=== PATIENT | female | born 1955 | race Asian ===

== ENCOUNTER 2018-10-19 09:38 | Outpatient (CLI) | payer OTHER ==
[~2018-10-19 09:38] MED LIST: CLOP75TA2 PO; INSU100I2 SC; LEVO0.0218 PO; LISI20TA11 PO; NEURONTIN800 MG PO
== END 2018-10-19 22:30 | disposition home or self-care (01) ==
LOC: RAD 09:38
DX: R05 Cough (principal)

== ENCOUNTER 2018-10-28 13:43 | Emergency (ER) | payer OTHER ==
[~2018-10-28] VITALS: Ht 165.1 cm; Wt 99.8 kg
[2018-10-28 14:11] VITALS: BP 164/98; TEMP 98.2
== END 2018-10-28 17:00 | disposition home or self-care (01) ==
LOC: ED 13:43
DX: S16.1XXA Strain of muscle, fascia and tendon at neck level, initial encounter (principal); S20.212A Contusion of left front wall of thorax, initial encounter; S20.211A Contusion of right front wall of thorax, initial encounter; S00.83XA Contusion of other part of head, initial encounter; V89.2XXA Person injured in unspecified motor-vehicle accident, traffic, initial encounter; Y92.89 Other specified places as the place of occurrence of the external cause
CPT/HCPCS: 96372; 99283; J1885

== ENCOUNTER 2018-11-06 15:59 | Emergency (ER) | payer OTHER ==
[~2018-11-06] VITALS: Ht 165.1 cm; Wt 99.8 kg
[2018-11-06 17:05] VITALS: BP 185/92; TEMP 98.5
== END 2018-11-06 17:05 | disposition home or self-care (01) ==
LOC: ED 15:59
DX: J44.1 Chronic obstructive pulmonary disease with (acute) exacerbation (principal); R91.1 Solitary pulmonary nodule; Z72.0 Tobacco use
CPT/HCPCS: 99281

== ENCOUNTER 2018-11-18 13:54 | Observation (INO) | payer OTHER ==
[~2018-11-18] VITALS: Ht 165.1 cm; Wt 101.3 kg
[2018-11-18 15:17] LABS: PLATELET COUNT 298 K/uL (152-353)
[2018-11-18 15:26] VITALS: BP 155/93; TEMP 98.6; Ht 165.1 cm; Wt 101.3 kg
[2018-11-18 15:34] LABS: POTASSIUM 4.4 mmol/L (3.6-5.2)
[2018-11-18 16:02] VITALS: BP 134/100; TEMP 98.4
[2018-11-18] MEDS ORDERED: GABA400C2 PO (16:41)
[2018-11-18] MEDS ORDERED: LANTUS100 UNIT/M SC (16:41)
[2018-11-18] MEDS ORDERED: LEVOTHYROXIN100 MC1 PO (16:42)
[2018-11-18] MEDS ORDERED: LUBI24CA PO (16:42)
[2018-11-18] MEDS ORDERED: METF500T PO (16:42)
[2018-11-18] MEDS ORDERED: AMBIEN5 MG PO (16:43)
[2018-11-18] MEDS ORDERED: AMLODIPINE BESYLATE PO (16:43)
[2018-11-18] MEDS ORDERED: CLON0.1T16 PO (16:44)
[2018-11-18] MEDS ORDERED: SIMV40TA57 (16:44)
[2018-11-18] MEDS ORDERED: FURO40TA93 PO (16:45)
[2018-11-18] MEDS ORDERED: REMERON SOLTAB30 MG PO (16:46)
[2018-11-18] MEDS ORDERED: HYDR10TA47A PO (16:47)
[2018-11-18] MEDS ORDERED: CETIRIZINE10 MG PO (16:48)
[2018-11-18] MEDS ORDERED: XANAX XR1 MG PO (16:48)
[2018-11-18] MEDS ORDERED: PROVENTIL108 MCG/AC INH (16:49)
[2018-11-18] MEDS ORDERED: LORADAMED10 MG PO (16:49)
[2018-11-18] MEDS ORDERED: FLUTMIS6 INH (16:51)
[2018-11-18] MEDS ORDERED: ALBUTERO1 INH (16:51)
[2018-11-18] MEDS ORDERED: TRICOR145 M1 PO (16:52)
[2018-11-18] MEDS ORDERED: METO50TA27 PO (16:53)
[2018-11-18] MEDS ORDERED: ZESTRIL40 MG PO (16:54)
[2018-11-18] MEDS ORDERED: METO50TA63 PO (16:54)
[2018-11-18 19:48] VITALS: BP 160/100; TEMP 98.1
[2018-11-19] VITALS: BP 184/101; TEMP 98
[2018-11-19 01:22] VITALS: BP 164/92
[2018-11-19 04:00] VITALS: BP 176/87; TEMP 97.8
[2018-11-19 08:00] VITALS: BP 165/91; TEMP 98.7
[2018-11-19 12:00] VITALS: BP 160/89; TEMP 97.6
== END 2018-11-19 14:35 | disposition home or self-care (01) ==
LOC: MED/SURG 13:54
PROVIDERS: ADMIT Family Medicine
DX: J44.1 Chronic obstructive pulmonary disease with (acute) exacerbation (principal); I10 Essential (primary) hypertension; E11.9 Type 2 diabetes mellitus without complications; Z86.718 Personal history of other venous thrombosis and embolism; G89.4 Chronic pain syndrome; F41.8 Other specified anxiety disorders; K21.9 Gastro-esophageal reflux disease without esophagitis; G47.00 Insomnia, unspecified
CPT/HCPCS: 80053; 82948; 85027; 87070; 87205; 87502; 87899; 93005; 94644; 94645; 94760; 96372; 96374; 99220; G0378; G0379; J1650; J1815; J2920

== ENCOUNTER 2019-12-23 11:52 | Inpatient (IN) | payer OTHER ==
[~2019-12-23] VITALS: Ht 165.1 cm; Wt 98.6 kg
[~2019-12-23 11:52] MED LIST changes: +ALBUTERO1 INH; +AMBIEN5 MG PO; +AMLODIPINE BESYLATE PO; +CETIRIZINE10 MG PO; +CLON0.1T16 PO; +FLUTMIS6 INH; +FURO40TA93 PO; +GABA400C2 PO; +HYDR10TA47A PO; +LANTUS100 UNIT/M SC; +LEVOTHYROXIN100 MC1 PO; +LORADAMED10 MG PO; +LUBI24CA PO; +METF500T PO; +METO50TA27 PO; +METO50TA63 PO; +PROVENTIL108 MCG/AC INH; +REMERON SOLTAB30 MG PO; +SIMV40TA57; +TRICOR145 M1 PO; +XANAX XR1 MG PO; +ZESTRIL40 MG PO
[2019-12-23 13:35] LABS: PLATELET COUNT 270 K/uL (152-353)
[2019-12-23 13:38] LABS: POTASSIUM 3.7 mmol/L (3.6-5.2)
[2019-12-23 16:23] VITALS: BP 159/88; TEMP 98.9; Ht 165.1 cm; Wt 98.6 kg
[2019-12-23 20:00] VITALS: BP 166/93; TEMP 100.2
[2019-12-24] VITALS: BP 141/82; TEMP 99
[2019-12-24 04:00] VITALS: BP 138/69; TEMP 99
[2019-12-24 08:00] VITALS: BP 158/90; TEMP 98.2
[2019-12-24 11:44] LABS: PLATELET COUNT 254 K/uL (152-353); POTASSIUM 4.1 mmol/L (3.6-5.2)
[2019-12-24 12:00] VITALS: BP 161/85; TEMP 97.9
[2019-12-24 16:00] VITALS: BP 166/95; TEMP 98.1
[2019-12-24 19:51] VITALS: BP 126/73; TEMP 97.6
[2019-12-25] VITALS: BP 170/98; TEMP 98.1
[2019-12-25 04:00] VITALS: BP 166/96; TEMP 98.2
[2019-12-25 05:29] LABS: PLATELET COUNT 268 K/uL (152-353)
[2019-12-25 05:49] LABS: POTASSIUM 3.7 mmol/L (3.6-5.2)
[2019-12-25 08:00] VITALS: BP 175/93; TEMP 98.8
[2019-12-25 12:00] VITALS: BP 192/107; TEMP 98
[2019-12-25 16:00] VITALS: BP 156/89; TEMP 98.3
[2019-12-25 20:00] VITALS: BP 127/80; TEMP 98.6
[2019-12-26] VITALS: BP 169/97; TEMP 98.3
[2019-12-26 04:00] VITALS: BP 177/93; TEMP 98.7
[2019-12-26] MEDS ORDERED: TIZANIDINE HYDRO4 MG PO (05:29)
[2019-12-26] MEDS ORDERED: ESCITALOPRAM10 MG PO (05:32)
[2019-12-26 08:00] VITALS: BP 192/102; TEMP 98.1
[2019-12-26 12:00] VITALS: BP 170/87; TEMP 98.4
== END 2019-12-26 16:34 | disposition home or self-care (01) | DRG 191 ==
LOC: MED/SURG 11:52
PROVIDERS: ADMIT Family Medicine
DX: J44.1 Chronic obstructive pulmonary disease with (acute) exacerbation (principal); J98.11 Atelectasis; J44.0 Chronic obstructive pulmonary disease with (acute) lower respiratory infection; E86.0 Dehydration; R23.1 Pallor; E11.65 Type 2 diabetes mellitus with hyperglycemia; R60.0 Localized edema; F17.210 Nicotine dependence, cigarettes, uncomplicated; J20.9 Acute bronchitis, unspecified; R55 Syncope and collapse; E83.42 Hypomagnesemia; D64.89 Other specified anemias
CPT/HCPCS: 36415; 80053; 81000; 82550; 82607; 82728; 82746; 82947; 82948; 83540; 83550; 83735; 83880; 84439; 84443; 84484; 85027; 87070; 87205; 93005; 94640; 94664; 94760; 96365; 96366; 96367; 96372; 96375; J1815; J1956; J2920; J3475; J3490

== ENCOUNTER 2020-03-07 12:25 | Outpatient (CLI) | payer OTHER ==
[~2020-03-07 12:25] MED LIST changes: +ESCITALOPRAM10 MG PO; +TIZANIDINE HYDRO4 MG PO
== END 2020-03-07 20:57 | disposition home or self-care (01) ==
LOC: RAD 12:25
DX: S69.81XA Other specified injuries of right wrist, hand and finger(s), initial encounter (principal)

== ENCOUNTER 2020-07-23 19:59 | Emergency (ER) | payer OTHER ==
[~2020-07-23] VITALS: Ht 165.1 cm; Wt 90.7 kg
[2020-07-23 20:15] VITALS: TEMP 99.2
[2020-07-23 21:32] VITALS: BP 160/90
== END 2020-07-23 21:32 | disposition home or self-care (01) ==
LOC: ED 19:59
PROC: 2W39X1Z Immobilization of Left Upper Extremity using Splint (ICD-10-PCS; principal; 2020-07-23)
DX: S52.022A Displaced fracture of olecranon process without intraarticular extension of left ulna, initial encounter for closed fracture (principal); W01.0XXA Fall on same level from slipping, tripping and stumbling without subsequent striking against object, initial encounter; Y92.89 Other specified places as the place of occurrence of the external cause
CPT/HCPCS: 36415; 99283

== ENCOUNTER 2021-01-17 18:47 | Emergency (ER) | payer OTHER ==
[~2021-01-17] VITALS: Ht 165.1 cm; Wt 90.7 kg
[2021-01-17 19:57] LABS: PLATELET COUNT 163 K/uL (152-353)
[2021-01-17 20:06] LABS: POTASSIUM 4.7 mmol/L (3.6-5.2); SODIUM 128 mmol/L (136-145)
[2021-01-17 20:12] LABS: PARTIAL THROMBOPLASTIN TIME 21.4 SECONDS (24.5-33.6)
[2021-01-17 23:45] VITALS: BP 138/86; TEMP 98.6
== END 2021-01-17 23:45 | disposition home or self-care (01) ==
LOC: ED 18:47
PROVIDERS: Hospitalist
DX: E86.0 Dehydration (principal); R11.2 Nausea with vomiting, unspecified; R19.7 Diarrhea, unspecified; G62.89 Other specified polyneuropathies; Z20.828 Contact with and (suspected) exposure to other viral communicable diseases; W01.198A Fall on same level from slipping, tripping and stumbling with subsequent striking against other object, initial encounter; Y92.89 Other specified places as the place of occurrence of the external cause
CPT/HCPCS: 36415; 80053; 80307; 80320; 81000; 82550; 82553; 83880; 84484; 85027; 85610; 85730; 87635; 93005; 96360; 96375; 99284; J1815; U0003

== ENCOUNTER 2022-01-31 14:30 | Observation (INO) | payer OTHER ==
[2022-01-31] VITALS (8 sets, daily range): BP systolic 112–197; BP diastolic 76–103; TEMP 98.5–98.8; Ht 165.1 cm; Wt 82.1 kg
[~2022-01-31] VITALS: Ht 165.1 cm; Wt 82.1 kg
[~2022-01-31 14:30] MED LIST changes: +ALPR0.5T24 PO; -AMBIEN5 MG PO; +EDLUAR10 MG PO; -HYDR10TA47A PO; +HYDR5TAB9 PO; -XANAX XR1 MG PO
[2022-01-31 15:03] LABS: PLATELET COUNT 167 K/uL (152-353)
[2022-01-31 15:13] LABS: POTASSIUM 3.4 mmol/L (3.6-5.2)
[2022-01-31 15:23] LABS: PARTIAL THROMBOPLASTIN TIME 23.3 SECONDS (24.5-33.6)
[2022-02-01] VITALS (9 sets, daily range): BP systolic 114–189; BP diastolic 59–104; TEMP 98.6–99.5
[2022-02-01] MEDS ORDERED: D3-5050000 UNIT PO (09:05)
[2022-02-01] MEDS ORDERED: DULOXETINE HCL30 MG PO (09:12)
[2022-02-01] MEDS ORDERED: AMLODIPINE BESYLATE PO (09:13)
[2022-02-01] MEDS ORDERED: LISI20TA11 PO (09:35)
[2022-02-01] MEDS ORDERED: K-TABS10 MEQ PO (09:36)
[2022-02-01] MEDS ORDERED: ACID REDUCER20 MG PO (09:37)
[2022-02-01] MEDS ORDERED: ONDANSETRON4 M2 PO (09:48)
[2022-02-01] MEDS ORDERED: MECLIZINE25 MG PO (09:49)
[2022-02-02] VITALS: BP 169/94; TEMP 99.6
[2022-02-02 04:00] VITALS: BP 193/94; TEMP 99.4
[2022-02-02 04:50] VITALS: BP 150/80
[2022-02-02 08:00] VITALS: BP 157/82; TEMP 206.6
[2022-02-02] MEDS ORDERED: DIFLUCAN 100MG TAB PO (09:08)
[2022-02-02] MEDS ORDERED: [UNRECOGNIZED DRUG - CODE] PO (09:09)
[2022-02-02] MEDS ORDERED: CEFDSUS2 PO (09:13)
[2022-02-02] MEDS ORDERED: CARAFATE1 GM/10 ML PO (09:30)
== END 2022-02-02 11:28 | disposition home or self-care (01) ==
LOC: ED 14:30 → MED/SURG 15:45
PROVIDERS: Hospitalist; ADMIT Internal Medicine; ATTEND Internal Medicine
DX: R07.89 Other chest pain (principal); I10 Essential (primary) hypertension; B37.89 Other sites of candidiasis; E78.49 Other hyperlipidemia; J44.9 Chronic obstructive pulmonary disease, unspecified; K21.00 Gastro-esophageal reflux disease with esophagitis, without bleeding; G89.29 Other chronic pain; E11.40 Type 2 diabetes mellitus with diabetic neuropathy, unspecified
CPT/HCPCS: 80053; 81000; 82550; 82948; 83690; 83880; 84484; 85027; 85610; 85730; 87077; 87086; 87088; 87185; 87186; 87635; 93005; 96365; 96367; 96372; 96374; 96375; 99220; 99284; G0378; J0456; J0696; J1650; J1815; J2270; J2405; U0003